=== PATIENT | female | born 1950 | race Caucasian/White ===

== ENCOUNTER → 2016-11-18 | Outpatient (CLI) | payer OTHER ==
[~2016-11-18] MED LIST: ALBUAER INH; CALC625T35 PO; CHOL200010 PO; ENAL10TA88 PO; ESCI1TAB9 PO; LIDO1CRE TOP; LIDO5DIS10 TD; MULT-506 PO; PREG100C PO; SIMV40TA2 PO; WARF2TAB PO; ZOLP5TAB PO
== END | disposition home or self-care (01) ==
LOC: C.RDSM 13:45
PROVIDERS: ATTEND Physical Medicine & Rehabilitation Sports Medicine
DX: M16.11 Unilateral primary osteoarthritis, right hip (principal); Z96.641 Presence of right artificial hip joint

== ENCOUNTER → 2017-06-30 | Outpatient (CLI) | payer OTHER | END | disposition home or self-care (01) | LOC: C.RDSM 15:17 | PROVIDERS: ATTEND Physical Medicine & Rehabilitation Sports Medicine | DX: Z96.641 Presence of right artificial hip joint (principal); M24.151 Other articular cartilage disorders, right hip; M16.11 Unilateral primary osteoarthritis, right hip ==